=== PATIENT | male | born 1930 ===

== ENCOUNTER 2018-11-14 10:43 | Outpatient (CLI) | payer MEDICARE | END 2018-11-14 10:44 | disposition home or self-care (01) | LOC: C.NUCMED 10:43 | DX: C61 Malignant neoplasm of prostate (principal) ==

== ENCOUNTER 2018-12-29 14:36 | Inpatient (IN) | payer MEDICARE | END 2019-01-21 22:27 | disposition skilled nursing facility (03) | DRG 808 | LOC: C.9I 01-09 08:28 → C.5S 01-13 09:59 → C.3T 01-15 08:13 → C.5S 01-13 23:24 → C.ER 14:36 → C.9E 16:48 → C.5S 17:54 | PROC: 30233N1 Transfusion of Nonautologous Red Blood Cells into Peripheral Vein, Percutaneous Approach (ICD-10-PCS; principal; 2019-01-12 13:55) | PROC: 0DJD8ZZ Inspection of Lower Intestinal Tract, Via Natural or Artificial Opening Endoscopic (ICD-10-PCS; 2019-01-12 13:55) | PROC: 0DB98ZX Excision of Duodenum, Via Natural or Artificial Opening Endoscopic, Diagnostic (ICD-10-PCS; 2019-01-12 13:55) | PROC: 0DB68ZX Excision of Stomach, Via Natural or Artificial Opening Endoscopic, Diagnostic (ICD-10-PCS; 2019-01-12 13:55) | PROC: 02HV33Z Insertion of Infusion Device into Superior Vena Cava, Percutaneous Approach (ICD-10-PCS; 2019-01-12 13:55) | PROC: 03HB33Z Insertion of Infusion Device into Right Radial Artery, Percutaneous Approach (ICD-10-PCS; 2019-01-12 13:55) | PROC: 30233K1 Transfusion of Nonautologous Frozen Plasma into Peripheral Vein, Percutaneous Approach (ICD-10-PCS; 2019-01-12 13:55) | PROC: 30233N1 Transfusion of Nonautologous Red Blood Cells into Peripheral Vein, Percutaneous Approach (ICD-10-PCS; 2019-01-12 13:55) | PROC: 6A550Z2 Pheresis of Platelets, Single (ICD-10-PCS; 2019-01-12 13:55) | DX: D61.818 Other pancytopenia (principal); C79.51 Secondary malignant neoplasm of bone; K57.31 Diverticulosis of large intestine without perforation or abscess with bleeding; C61 Malignant neoplasm of prostate; K65.1 Peritoneal abscess; R18.8 Other ascites; R64 Cachexia; D62 Acute posthemorrhagic anemia; K26.7 Chronic duodenal ulcer without hemorrhage or perforation; K22.2 Esophageal obstruction; K29.70 Gastritis, unspecified, without bleeding; I25.3 Aneurysm of heart; J90 Pleural effusion, not elsewhere classified; K66.8 Other specified disorders of peritoneum; K64.2 Third degree hemorrhoids; K21.9 Gastro-esophageal reflux disease without esophagitis; Z68.1 Body mass index [BMI] 19.9 or less, adult; I95.9 Hypotension, unspecified; T45.525A Adverse effect of antithrombotic drugs, initial encounter; N40.0 Benign prostatic hyperplasia without lower urinary tract symptoms; G89.29 Other chronic pain; Z86.010 Personal history of colon polyps; Z90.49 Acquired absence of other specified parts of digestive tract; Z87.01 Personal history of pneumonia (recurrent); Z87.891 Personal history of nicotine dependence; Z91.81 History of falling ==